=== PATIENT | male | born 1985 | race Caucasian/White ===

== ENCOUNTER 2017-06-25 00:02 | Emergency (ER) | payer MEDICAID ==
[2017-06-25 02:27] LABS: RED CELL DISTRIBUTION WIDTH 12.8 % (11.5-14.5)
[2017-06-25 02:32] LABS: PLATELET COUNT 423 x10^3mcL (130-400)
[2017-06-25 02:33] LABS: CALCIUM 9.2 mg/dL (8.5-10.1); CHLORIDE SERUM 100 mmol/L (98-107); GFR1 > 60 mL/min; GLUCOSE SERUM 169 mg/dL (74-106); POTASSIUM SERUM 4.2 mmol/L (3.5-5.1); SODIUM SERUM 136 mmol/L (136-145)
[2017-06-25 03:01] LABS: BAND NEUTROPHIL 2 % (0-10); METAMYELOCTE 1 % (0-2); MONOCYTE 3 % (0-7); SEGMENTED NEUTROPHILS 78 % (37-75)
[2017-06-25 03:02] LABS: PLATELET MORPHOLOGY FEW LARGE PLATELETS; rbc morphology (normal/abnorm) NORMAL (NORMAL)
[2017-06-25 04:31] VITALS: BP 182/115
== END 2017-06-25 04:31 | disposition home or self-care (01) ==
LOC: ED 00:02 → EDBD 00:03 → ED 00:03
PROVIDERS: Emergency Medicine
DX: R55 Syncope and collapse (principal); R00.2 Palpitations; R11.0 Nausea
CPT/HCPCS: 36415; 85378; Q0092